=== PATIENT | male | born 1985 | race Caucasian/White ===

== ENCOUNTER 2022-04-01 14:03 | Emergency (ER) | payer OTHER ==
[~2022-04-01] VITALS: Ht 182.9 cm; Wt 108.9 kg
== END 2022-04-01 17:57 | disposition home or self-care (01) ==
LOC: ER 14:03
DX: S61.012A Laceration without foreign body of left thumb without damage to nail, initial encounter (principal); W26.0XXA Contact with knife, initial encounter; Y93.G3 Activity, cooking and baking; Y92.89 Other specified places as the place of occurrence of the external cause; Y99.9 Unspecified external cause status; Z88.8 Allergy status to other drugs, medicaments and biological substances